=== PATIENT | male | born 1960 | race Caucasian/White ===

== ENCOUNTER 2022-12-07 08:11 | Outpatient (CLI) | payer BC, MEDICARE | END 2022-12-07 08:12 | disposition home or self-care (01) | LOC: MADULT 08:11 | PROVIDERS: ATTEND Internal Medicine Gastroenterology | DX: R10.84 Generalized abdominal pain (principal); K21.9 Gastro-esophageal reflux disease without esophagitis; R14.0 Abdominal distension (gaseous); K76.0 Fatty (change of) liver, not elsewhere classified | CPT/HCPCS: 76705 ==

== ENCOUNTER 2025-02-02 10:50 | Emergency (ER) | payer OTHER, MEDICARE ==
[2025-02-02] MEDS ORDERED: Acetaminophen 500 MG TAB ONE (11:14)
[2025-02-02 11:54] LABS: Hematocrit 54.2 % (42.0-52.0); Hemoglobin 16.3 g/dL (14.0-18.0); Mean Corpuscular Hemoglobin 24.9 pg (27.0-31.0); Mean Corpuscular Volume 82.9 fl (78.0-98.0); Platelet Count 183 10x3/uL (130-400); Red Blood Cell (RBC) Count 6.54 mill/uL (4.70-6.10); White Blood Cell (WBC) Count 9.4 10x3/uL (4.8-10.8)
[2025-02-02] MEDS ORDERED: Cefepime 2 GM VIAL ONE (11:58)
[2025-02-02 12:04] LABS: MDiff Complete? YES; Manual Diff?? YES
[2025-02-02 12:05] LABS: Platelet Adequacy Comment Appears Adequate
[2025-02-02 12:08] LABS: ALT (SGPT) 29 U/L (Less than 45); AST (SGOT) 23 U/L (11-34); Albumin 4.1 g/dL (3.1-4.5); Alkaline Phosphatase 45 U/L (40-110); Anion Gap 19 mmol/L (10-20); BUN (Urea Nitrogen) 21 mg/dL (8.4-25.7); Bilirubin, Total 0.7 mg/dL (0.3-1.2); Calc. Creatinine Clearance 0 mL/min (70-130); Calcium 9.4 mg/dL (7.8-10.44); Carbon Dioxide 20 mmol/L (23-31); Chloride 109 mmol/L (98-107); Globulin 3.0 g/dL (2.4-3.5); Glucose 161 mg/dL (80-115); Potassium 3.9 mmol/L (3.5-5.1); Sodium 144 mmol/L (136-145)
[2025-02-02 12:09] LABS: Troponin I Less than 0.010 ng/mL (< 0.028)
[2025-02-02 12:35] LABS: Glucose, Urine (Dipstick) >=1000 mg/dL (Negative); Leukocyte Negative (Negative); Protein, Urine (Dipstick) Negative (Neg-Trace); Specific Gravity, Urine 1.015 (1.005-1.030)
[2025-02-02 12:46] LABS: CAUTI Indications for Culture Fever or rigors; RBC/HPF 0-3 HPF (0-3); WBC/HPF 0-3 HPF (0-3)
[2025-02-02 12:47] LABS: Urine Culture Reflex No No
[2025-02-02] MEDS ORDERED: Azithromycin 250 MG TAB ONE (15:48)
== END 2025-02-02 16:31 | disposition home or self-care (01) ==
LOC: MADERS 10:50
DX: A08.4 Viral intestinal infection, unspecified (principal); E86.0 Dehydration; D84.9 Immunodeficiency, unspecified; I25.10 Atherosclerotic heart disease of native coronary artery without angina pectoris; E11.40 Type 2 diabetes mellitus with diabetic neuropathy, unspecified; K21.9 Gastro-esophageal reflux disease without esophagitis; Z79.899 Other long term (current) drug therapy; Z79.51 Long term (current) use of inhaled steroids; Z79.82 Long term (current) use of aspirin; Z79.52 Long term (current) use of systemic steroids; Z79.4 Long term (current) use of insulin
CPT/HCPCS: 36415; 71045; 80053; 81001; 83605; 84484; 85025; 87040; 87400; 87426; 93005; 94760; 96361; 96365; 96367; J0692; J3373; J7030; J7050; J7120